=== PATIENT | female | born 1970 | race Caucasian/White ===

== ENCOUNTER → 2016-11-26 | Outpatient (CLI) | payer OTHER ==
[~2016-11-26] MED LIST: DCS100C; DOXY100C2 PO; FEXO1TAB49 PO; FLUO40CA PO; GUAI10SY4 PO; HYDR-34; HYDR-34 PO; HYDR25TA4 PO; HYOS0.1216 PO; IBP800T; INSN1U SQ; INSU100V31 SQ; LEVO500T78 PO; MTF500T PO; ONDA-42 SL; ONDA8TAB13 PO; ONDA8TAB6; OXYC-199 PO; OXYC-202 PO; PHEN37.555 PO; PRED1DRO OP; PREN1TAB39; VIGAMOX OP
[2016-11-26 02:48] LABS: BILIRUBIN,URINE NEGATIVE (NEGATIVE); KETONES,URINE NEGATIVE (NEGATIVE); LEUKOCYTE ESTERASE ,URINE 1+ (NEGATIVE); NITRITE,URINE NEGATIVE (NEGATIVE); PH,URINE 8 (5-9); PROTEIN,URINE 2+ (NEGATIVE); UROBILINOGEN,URINE 1 MG/DL (NORMAL)
== END ==
LOC: LAB 02:38
PROVIDERS: ATTEND Family Medicine
DX: R10.84 Generalized abdominal pain (principal); R35.0 Frequency of micturition
CPT/HCPCS: 81000; 87088

== ENCOUNTER → 2017-11-08 | Outpatient (CLI) | payer OTHER ==
--- NOTE | 2017-11-08 18:02 | Diagnostic Imaging Report ---
Digital mammogram bilateral screening with 3D tomosynthesis. This study was compared to the prior exams of 06/17/2015 and 07/18/2012. At this time, there are no current complaints. The current study was also evaluated with a Computer Aided Detection (CAD) system. FINDINGS: There are scattered fibroglandular densities in both breasts which could obscure a lesion. When compared to the prior study, there has been no significant change. There is no primary or secondary sign of malignancy noted. The 3D tomographic views also fail to show any sign of malignancy. IMPRESSION: 1. There is no evidence for malignancy. 2. The patient should have her annual screening mammogram on schedule in October of 2018. ACR BI-RADS Category 1: Negative. Result letter will be mailed to the patient. Note: At least 10% of breast cancer is not imaged by mammography. Dictated by: Dictated on workstation # [id number]
== END ==
LOC: RAD 10:40
PROVIDERS: ATTEND Obstetrics & Gynecology
DX: Z12.31 Encounter for screening mammogram for malignant neoplasm of breast (principal)
CPT/HCPCS: 77067

== ENCOUNTER 2019-06-05 02:18 | Emergency (ER) | payer OTHER ==
[~2019-06-05] VITALS: Ht 162 cm; Wt 101.9 kg
[~2019-06-05 02:18] MED LIST changes: -OXYC-202 PO; +OXYC1TAB12 PO
[2019-06-05] MEDS ORDERED: NS IV 1000 ML 1,000 ML IV SCH (02:28)
[2019-06-05] MEDS ORDERED: NS IV 1000 ML 1,000 ML IV ONE (02:28)
[2019-06-05] MEDS ORDERED: ONDANSETRON 4 MG/2 ML (SDV) Z0FRAN IVP ONE (02:30)
--- NOTE | 2019-06-05 02:36 | ED General ---
General Chief Complaint: Glucose Problems Stated Complaint: ELEVATED BLOOD SUGAR Source of Information: Patient Exam Limitations: No Limitations History of Present Illness Date Seen by Provider: Jun 05, 2019 Time Seen by Provider: 02:19 Initial Comments The patient presents with chief complaint of waking up this morning about an hour ago with nausea, thirst, urinary frequency for the past day and so she checked her blood sugar and it was 450. She is a type II diabetic on Victoza and metformin. Her blood sugar 120-150 fasting. She has not had an A1c past year. She follows with Dr. Maurice. She does not use insulin. She is not having any pain anywhere. She denies dysuria or discharge. She denies any rash or swelling she is cough or shortness of breath. She concerns of diverticulitis. She does not have a history of diabetic acidosis. She says last year similar episode to this occurred and she was found to have a bad infection. She doesn't have a historyshe was physically kids to sleep. He denies a history of hyperlipidemia or smoking. No previous coronary disease or significant familial history. Allergies and Home Medications Allergies Coded Allergies: prochlorperazine (Verified Allergy, Unknown, PT. HAS RECEIVED PHENERGAN IN PAST WITHOUT PROBLEMS, 12/24/07) Home Medications Insulin NPH Human Isophane 100 Unit/1 Ml Vial, 28 UNIT SQ DAILY, (Reported) Insulin NPH Human Isophane 100 Unit/1 Ml Vial, 12 UNIT SQ HS, (Reported) Insulin Regular, Human 100 Unit/1 Ml Vial, 12 UNIT SQ BID, (Reported) Oxycodone HCl/Acetaminophen 1 Each Tablet, 1-2 TAB PO Q4H PRN for PAIN Prescribed by: FREDDY BOO on 04/03/16 0749 Patient Home Medication List Home Medication List Reviewed: Yes Review of Systems Review of Systems Constitutional: No chills, No diaphoresis, No fever; malaise EENTM: No ear discharge Respiratory: No cough, No short of breath Cardiovascular: No chest pain, No edema Gastrointestinal: No abdominal pain, No constipation, No diarrhea, No nausea Genitourinary: No discharge, No dysuria Musculoskeletal: No back pain, No joint pain, No joint swelling Skin: No pruritus, No rash Psychiatric/Neurological: Denies Anxiety, Denies Depressed Hematologic/Lymphatic: Denies Blood Clots All Other Systems Reviewed Negative Unless Noted: Yes Past Inasobh-Akdjnt-Yxeznl Hx Patient Social History Alcohol Use: Denies Use Recreational Drug Use: No Smoking Status: Never a Smoker Recent Foreign Travel: No Contact w/Someone Who Travel: No Immunizations Up To Date Date of Pneumonia Vaccine: Mar 02, 2011 Date of Influenza Vaccine: Apr 01, 2014 Past Medical History Abdominal (two exploratory laparoscopys. ovarian cyst removals. ), Section, Gallbladder, Tonsillectomy Hypertension Reproductive Disorders: No Sexually Transmitted Disease: No Gastroesophageal Reflux Diabetes, Non-Insulin dep Depression Family Medical History No Pertinent Family Hx Physical Exam Vital Signs Vital Signs - First Documented 06/05/19 02:22 Temp 36.7 Pulse 105 Resp 20 B/P (MAP) 161/111 (128) Pulse Ox 98 O2 Delivery Room Air Capillary Refill : Height, Weight, BMI Height: 5'5.00" Weight: 230lbs. 0.0oz. [id number]; 38.27 BMI Method:Stated General Appearance: WD/WN, Anxious, Obese Eyes: Bilateral Eye Normal Inspection, Bilateral Eye PERRL, Bilateral Eye EOMI HEENT: PERRL/EOMI, Pharynx Normal; No Moist Mucous Membranes (oral mucosa mil dly dry) Neck: Full Range of Motion, Normal Inspection Respiratory: Lungs Clear, Normal Breath Sounds, No Accessory Muscle Use, No Respiratory Distress Cardiovascular: Regular Rate, Rhythm, No Edema, Normal Peripheral Pulses Gastrointestinal: Normal Bowel Sounds, No Organomegaly, Non Tender, Soft Extremity: Normal Capillary Refill, Normal Inspection, No Pedal Edema Neurologic/Psychiatric: Alert, Oriented x3, No Motor/Sensory Deficits Skin: Normal Color, Warm/Dry Progress/Results/Core Measures Suspected Sepsis SIRS Temperature: Pulse: Respiratory Rate: Laboratory Tests 06/05/19 02:35: White Blood Count 9.7 Blood Pressure / Mean: Laboratory Tests 06/05/19 02:35: Creatinine 0.82, Platelet Count 323, Total Bilirubin 0.9 Results/Orders Lab Results Laboratory Tests Test 06/05/19 02:26 06/05/19 02:30 06/05/19 02:35 06/05/19 03:52 Range/Units Glucometer 422 *H 407 *H 70-110 MG/DL Urine Color YELLOW Urine Clarity CLEAR Urine pH 7.0 5-9 Urine Specific [place] 1.010 L 1.016-1.022 Urine Protein NEGATIVE NEGATIVE Urine Glucose (UA) 3+ H NEGATIVE Urine Ketones NEGATIVE NEGATIVE Urine Nitrite NEGATIVE NEGATIVE Urine Bilirubin NEGATIVE NEGATIVE Urine Urobilinogen 0.2 < = 1.0 MG/DL Urine Leukocyte Esterase NEGATIVE NEGATIVE Urine RBC (Auto) NEGATIVE NEGATIVE Urine RBC NONE /HPF Urine WBC NONE /HPF Urine Squamous Epithelial Cells 2-5 /HPF Urine Crystals NONE /LPF Urine Bacteria TRACE /HPF Urine Casts NONE /LPF Urine Mucus NEGATIVE /LPF Urine Culture Indicated NO Urine Test NEGATIVE NEGATIVE White Blood Count 9.7 4.3-11.0 10^3/uL Red Blood Count 5.01 4.35-5.85 10^6/uL Hemoglobin 14.7 11.5-16.0 G/DL Hematocrit 44 35-52 % Mean Corpuscular Volume 87 80-99 FL Mean Corpuscular Hemoglobin 29 25-34 PG Mean Corpuscular Hemoglobin Concent 34 32-36 G/DL Red Cell Distribution Width 12.8 10.0-14.5 % Platelet Count 323 130-400 10^3/uL Mean Platelet Volume 10.0 7.4-10.4 FL Neutrophils (%) (Auto) 55 42-75 % Lymphocytes (%) (Auto) 34 12-44 % Monocytes (%) (Auto) 9 0-12 % Eosinophils (%) (Auto) 2 0-10 % Basophils (%) (Auto) 1 0-10 % Neutrophils # (Auto) 5.4 1.8-7.8 X 10^3 Lymphocytes # (Auto) 3.3 1.0-4.0 X 10^3 Monocytes # (Auto) 0.8 0.0-1.0 X 10^3 Eosinophils # (Auto) 0.2 0.0-0.3 10^3/uL Basophils # (Auto) 0.1 0.0-0.1 10^3/uL Sodium Level 136 135-145 MMOL/L Potassium Level 3.6 3.6-5.0 MMOL/L Chloride Level 100 98-107 MMOL/L Carbon Dioxide Level 22 21-32 MMOL/L Anion Gap 14 5-14 MMOL/L Blood Urea Nitrogen 14 7-18 MG/DL Creatinine 0.82 0.60-1.30 MG/DL Estimat Glomerular Filtration Rate > 60 BUN/Creatinine Ratio 17 Glucose Level 439 *H 70-105 MG/DL Calcium Level 9.8 8.5-10.1 MG/DL Corrected Calcium 8.5-10.1 MG/DL Total Bilirubin 0.9 0.1-1.0 MG/DL Aspartate Amino Transf (AST/SGOT) 11 5-34 U/L Alanine Aminotransferase (ALT/SGPT) 23 0-55 U/L Alkaline Phosphatase 70 40-136 U/L Troponin I < 0.028 <0.028 NG/ML C-Reactive Protein High Sensitivity 1.18 H 0.00-0.50 MG/DL Total Protein 7.5 6.4-8.2 GM/DL Albumin 4.6 H 3.2-4.5 GM/DL Lipase 34 8-78 U/L Test 06/05/19 04:36 06/05/19 05:28 06/05/19 06:11 Range/Units Glucometer 386 H 345 H 254 H 70-110 MG/DL My Orders Orders - CHERI BURGESS Ondansetron Injection (Zofran Injectio (06/05/19 02:30) Ed Iv/Invasive Line Start (06/05/19 02:28) Ns Iv 1000 Ml (Sodium Chloride 0.9%) (06/05/19 02:28) Ns Iv 1000 Ml (Sodium Chloride 0.9%) (06/05/19 02:28) Accucheck Stat ONCE (06/05/19 02:28) Lipase (06/05/19 02:28) Cbc With Automated Diff (06/05/19 02:28) Comprehensive Metabolic Panel (06/05/19 02:28) Hs C Reactive Protein (06/05/19 02:28) Chest 1 View, Ap/Pa Only (06/05/19 02:28) Ua Culture If Indicated (06/05/19 02:28) Hcg,Qualitative Urine (06/05/19 02:28) Aspirin Chewable Tablet (Baby Aspirin Ch (06/05/19 02:45) Ekg Tracing (06/05/19 02:36) Troponin I (06/05/19 02:36) Continuous Ekg Monitoring (06/05/19 02:36) Insulin Aspart (Novolog) (Novolog (Charg (06/05/19 03:30) Hemoglobin A1c (06/05/19 03:30) Accucheck Stat ONCE (06/05/19 04:00) Insulin Aspart (Novolog) (Novolog (Charg (06/05/19 04:00) Insulin Determir (Per Unit) (Levemir (Pe (06/05/19 04:00) Accucheck Stat ONCE (06/05/19 04:35) Accucheck Stat ONCE (06/05/19 05:05) Accucheck Stat ONCE (06/05/19 06:05) Medications Given in ED Current Medications Medications Dose Ordered Sig/Pineda Route Start Time Stop Time Status Last Admin Dose Admin Aspirin 324 mg ONCE ONCE PO 06/05/19 02:45 06/05/19 02:46 DC 06/05/19 02:41 324 MG Insulin Aspart 10 unit ONCE ONCE SC 06/05/19 03:30 06/05/19 03:31 DC 06/05/19 03:27 10 UNIT Insulin Aspart 20 unit ONCE ONCE SC 06/05/19 04:00 06/05/19 04:01 DC 06/05/19 04:06 20 UNIT Insulin Detemir 20 unit ONCE ONCE SQ 06/05/19 04:00 06/05/19 04:01 DC 06/05/19 04:06 20 UNIT Ondansetron HCl 8 mg ONCE ONCE IVP 06/05/19 02:30 06/05/19 02:35 DC 06/05/19 02:40 8 MG Sodium Chloride 1,000 ml @ 0 mls/hr Q0M ONCE IV 06/05/19 02:28 06/05/19 02:35 DC 06/05/19 02:39 0 MLS/HR Vital Signs/I&O 06/05/19 02:22 Temp 36.7 Pulse 105 Resp 20 B/P (MAP) 161/111 (128) Pulse Ox 98 O2 Delivery Room Air Capillary Refill : Progress Note #1: Time: 02:40 Progress Note Patient presents with hyperglycemia associated with nausea and urinary frequency. We will look for infection as a source of her hyperglycemia but we'll also provide cover against atypical angina with some aspirin and obtain EKG and troponin. Her symptoms started at 1:00 approximately 1 hour 40 minutes prior. She has not had any chest pain, jaw, neck, shoulder or arm involvement. Progress Note #2: Time: 03:31 Progress Note No evidence of anion gap. She's not having any pain or nausea presently. We've given her the better part of 2 L and we'll give her 10 units of NovoLog and recheck the blood sugar in about 25 minutes. Since she's not had an hemoglobin A1c in the past year we will obtain one today for her primary care office. Progress Note #3: Time: 06:22 Progress Note We have trended the patient's blood sugar down to 254. She is feeling okay. We have recommended she follow up with primary care. Return precautions were given. ECG Initial ECG Impression Date: Jun 05, 2019 Initial ECG Impression Time: 02:44 Initial ECG Rate: 97 Initial ECG Rhythm: Normal Sinus Initial ECG Intervals: Normal Initial ECG Impression: Normal Initial ECG Comparisson: Unchanged Comment No ST elevation or depression. Normal sinus rhythm. Diagnostic Imaging Diagonstic Imaging: Xray Plain Films/CT/US/NM/MRI: chest (1v) Comments No acute cardiopulmonary processes noted on one view chest x-ray. Radiology over read pending. Reviewed: Reviewed by Me Departure Impression Primary Impression: Hyperglycemia due to type 2 diabetes mellitus Qualified Codes: E11.65 - Type 2 diabetes mellitus with hyperglycemia Disposition: 01 HOME, SELF-CARE Condition: Improved Departure-Patient Inst. Decision time for Depature: 06:22 Referrals: FRANK MAURICE MD (PCP/Family) Primary Care Physician Patient Instructions: Diabetes Type 2 (DC) Add. Discharge Instructions: Plan to follow up with primary care. If you feel cold clammy sweaty, irritable or otherwise just off then please check your sugar immediately. Keep something to eat with you on hand at all times today. All discharge instructions reviewed with patient and/or family. Voiced understanding. Work/School Note: Work Release Form Date Seen in the Emergency Department: Jun 05, 2019 Return to Work: Jun 06, 2019 Restrictions: No Restrictions CHERI BURGESS Jun 05, 2019 02:36 POS
[2019-06-05 02:44] LABS: BASOPHILS # (AUTO) 0.1 10^3/uL (0.0-0.1); BASOPHILS % (AUTO) 1 % (0-10); EOSINOPHILS # (AUTO) 0.2 10^3/uL (0.0-0.3); EOSINOPHILS % (AUTO) 2 % (0-10); HEMATOCRIT 44 % (35-52); HEMOGLOBIN 14.7 G/DL (11.5-16.0); LYMPHOCYTES # (AUTO) 3.3 X 10^3 (1.0-4.0); LYMPHOCYTES % (AUTO) 34 % (12-44); MEAN CORPUSCULAR HEMOGLOBIN 29 PG (25-34); MEAN CORPUSCULAR HGB CONC 34 G/DL (32-36); MEAN CORPUSCULAR VOLUME 87 FL (80-99); MONOCYTES # (AUTO) 0.8 X 10^3 (0.0-1.0); MONOCYTES % (AUTO) 9 % (0-12); NEUTROPHILS # (AUTO) 5.4 X 10^3 (1.8-7.8); NEUTROPHILS % (AUTO) 55 % (42-75); PLATELET COUNT 323 10^3/uL (130-400); RED CELL DISTRIBUTION WIDTH 12.8 % (10.0-14.5); WHITE BLOOD COUNT 9.7 10^3/uL (4.3-11.0)
[2019-06-05] MEDS ORDERED: ASPIRIN 81 MG CHEW (CHILDREN'S ASA) PO ONE (02:45)
[2019-06-05 02:47] LABS: BACTERIA,URINE TRACE /HPF; BILIRUBIN,URINE NEGATIVE (NEGATIVE); CLARITY,URINE CLEAR; COLOR,URINE YELLOW; GLUCOSE, URINE (UA) 3+ (NEGATIVE); KETONES,URINE NEGATIVE (NEGATIVE); LEUKOCYTE ESTERASE ,URINE NEGATIVE (NEGATIVE); NITRITE,URINE NEGATIVE (NEGATIVE); PROTEIN,URINE NEGATIVE (NEGATIVE)
[2019-06-05 03:02] LABS: ALANINE AMINOTRANSFERASE 23 U/L (0-55); ALBUMIN 4.6 GM/DL (3.2-4.5); ALKALINE PHOSPHATASE 70 U/L (40-136); BILIRUBIN,TOTAL 0.9 MG/DL (0.1-1.0); BUN/CREATININE RATIO 17; CALCIUM 9.8 MG/DL (8.5-10.1); CARBON DIOXIDE 22 MMOL/L (21-32); CHLORIDE 100 MMOL/L (98-107); CREATININE SERUM 0.82 MG/DL (0.60-1.30); GFR ESTIMATED > 60; LIPASE 34 U/L (8-78); POTASSIUM 3.6 MMOL/L (3.6-5.0); SODIUM 136 MMOL/L (135-145); TOTAL PROTEIN 7.5 GM/DL (6.4-8.2)
[2019-06-05 03:10] LABS: GLUCOSE 439 MG/DL (70-105)
[2019-06-05] MEDS ORDERED: inSUlin ASPART (NovoLOG) 1 UNIT/0.01 ML (CHARGE PER UNIT) SC ONE ×2 (03:30→04:00)
--- NOTE | 2019-06-05 05:54 | Diagnostic Imaging Report ---
Clinical indication: Patient with elevated blood sugar. Exam: Portable chest x-ray upright view. Comparisons: Chest x-ray dated 11/24/2015. Findings: Lungs/pleura: Lungs are clear. There is no pneumothorax. There is no pleural effusion. Mediastinum: Unremarkable. Pulmonary vasculature: Unremarkable. Heart: Unremarkable. Bones/extrathoracic soft tissue: Unremarkable. Impression: There is no radiographic evidence of acute cardiopulmonary process. Dictated by: Dictated on workstation # [id number]
[2019-06-05 06:32] VITALS: BP 151/89
== END 2019-06-05 06:38 | disposition home or self-care (01) ==
LOC: EDUNIT# 02:18 → ER 02:19
DX: E11.65 Type 2 diabetes mellitus with hyperglycemia (principal); I10 Essential (primary) hypertension; K21.9 Gastro-esophageal reflux disease without esophagitis; F32.9 Major depressive disorder, single episode, unspecified; Z90.89 Acquired absence of other organs; Z88.8 Allergy status to other drugs, medicaments and biological substances; Z79.4 Long term (current) use of insulin
CPT/HCPCS: 36415; 71045; 80053; 81000; 82962; 83036; 83690; 84484; 84703; 85025; 86141; 93005; 96361; 96372; 96374

== ENCOUNTER → 2019-07-24 | Outpatient (CLI) | payer OTHER ==
--- NOTE | 2019-07-25 07:59 | Diagnostic Imaging Report ---
Digital mammogram. INDICATION: Bilateral screening This study was compared to the prior exams of 11/08/2017 and 06/17/2015. At this time there are no current complaints. The current study was also evaluated with a Computer Aided Detection (CAD) system. FINDINGS: There are scattered fibroglandular densities in both breasts which could obscure a lesion. Overall, there does not appear to have been any significant change when compared to the prior exam. No primary or secondary sign of malignancy is noted. IMPRESSION: There is no radiographic evidence for malignancy. ACR BI-RADS Category 1: Negative. Result letter will be mailed to the patient. Note: At least 10% of breast cancer is not imaged by mammography. Dictated by: Dictated on workstation # [id number]
== END ==
LOC: RAD 15:40
PROVIDERS: ATTEND Obstetrics & Gynecology
DX: Z12.31 Encounter for screening mammogram for malignant neoplasm of breast (principal)
CPT/HCPCS: 77067

== ENCOUNTER → 2020-01-13 | Outpatient (CLI) | payer OTHER ==
[2020-01-13 09:01] LABS: BASOPHILS # (AUTO) 0.1 10^3/uL (0.0-0.1); BASOPHILS % (AUTO) 1 % (0-10); EOSINOPHILS # (AUTO) 0.2 10^3/uL (0.0-0.3); EOSINOPHILS % (AUTO) 3 % (0-10); HEMATOCRIT 40 % (35-52); HEMOGLOBIN 13.5 G/DL (11.5-16.0); LYMPHOCYTES # (AUTO) 2.3 X 10^3 (1.0-4.0); LYMPHOCYTES % (AUTO) 31 % (12-44); MEAN CORPUSCULAR HEMOGLOBIN 29 PG (25-34); MEAN CORPUSCULAR HGB CONC 34 G/DL (32-36); MEAN CORPUSCULAR VOLUME 87 FL (80-99); MEAN PLATELET VOLUME 9.5 FL (7.4-10.4); MONOCYTES # (AUTO) 0.5 X 10^3 (0.0-1.0); MONOCYTES % (AUTO) 7 % (0-12); NEUTROPHILS # (AUTO) 4.4 X 10^3 (1.8-7.8); NEUTROPHILS % (AUTO) 59 % (42-75); PLATELET COUNT 293 10^3/uL (130-400); RED CELL DISTRIBUTION WIDTH 13.6 % (10.0-14.5); WHITE BLOOD COUNT 7.4 10^3/uL (4.3-11.0)
[2020-01-13 09:15] LABS: ALBUMIN 4.4 GM/DL (3.2-4.5); CHLORIDE 103 MMOL/L (98-107); SODIUM 135 MMOL/L (135-145)
[2020-01-13 09:16] LABS: CALCIUM 9.1 MG/DL (8.5-10.1)
[2020-01-13 09:17] LABS: TRIGLYCERIDES 233 MG/DL (<150); VLDL CHOLESTEROL 47 MG/DL (5-40)
[2020-01-13 09:18] LABS: GLUCOSE 290 MG/DL (70-105); TOTAL PROTEIN 7.4 GM/DL (6.4-8.2)
[2020-01-13 09:19] LABS: BILIRUBIN,TOTAL 1.2 MG/DL (0.1-1.0); CARBON DIOXIDE 21 MMOL/L (21-32)
[2020-01-13 09:21] LABS: ALKALINE PHOSPHATASE 60 U/L (40-136); CREATININE SERUM 0.75 MG/DL (0.60-1.30); GFR ESTIMATED > 60
[2020-01-13 09:22] LABS: CHOLESTEROL 191 MG/DL (< 200)
[2020-01-13 09:23] LABS: BUN/CREATININE RATIO 16
[2020-01-13 09:24] LABS: ALANINE AMINOTRANSFERASE 30 U/L (0-55); HDL CHOLESTEROL 42 MG/DL (40-60)
== END ==
LOC: LAB 08:33
PROVIDERS: ATTEND Family Medicine
DX: I10 Essential (primary) hypertension (principal); E11.9 Type 2 diabetes mellitus without complications
CPT/HCPCS: 36415; 80053; 80061; 82043; 83036; 84443; 85025

== ENCOUNTER 2020-06-16 05:40 | Outpatient (RCR) | payer OTHER ==
[~2020-06-16] VITALS: Ht 162 cm; Wt 103.6 kg
[~2020-06-16 05:40] MED LIST changes: +CHOL200074 PO; +FLUO20CA42 PO; +LIRA0.6P SQ; +LORA10TA76 PO; +LOSA50TA63 PO; +METF-397 PO; +MULT-1136 PO; +ZINC50TA11 PO
== END 2020-06-16 13:06 | disposition home or self-care (01) ==
LOC: PREOP 05:40
PROVIDERS: ATTEND Surgery
DX: Z01.812 Encounter for preprocedural laboratory examination (principal); K21.9 Gastro-esophageal reflux disease without esophagitis; Z20.828 Contact with and (suspected) exposure to other viral communicable diseases
CPT/HCPCS: 87635

== ENCOUNTER 2020-06-18 11:12 | Day surgery (SDC) | payer OTHER ==
--- NOTE | 2020-06-15 07:49 | HISTORY AND PHYSICAL ---
DATE OF SERVICE: DATE OF ADMISSION: 06/18/2020. HISTORY OF PRESENT ILLNESS: The patient is a 49-year-old female with a longstanding history of gastroesophageal reflux disease. She states that this initially occurred approximately 16 years ago and she did undergo an EGD in 2003 and was found to have a small hiatal hernia. She states that over time this has worsened and this has been associated in the last month with epigastric burning sensation as well as crampy pain, which is significant. She does not report any nausea nor vomiting as well as no hematemesis, no coffee-ground emesis. She states for the most part, her bowel movements have been regular. She does not report any antoine episodes of nausea or vomiting following meals. PAST MEDICAL HISTORY: Diabetes, hypertension, gastroesophageal reflux disease. PAST SURGICAL HISTORY: section x3, tonsillectomy, ovarian cystectomy, D and C. ALLERGIES: COMPAZINE. MEDICATIONS: Victoza, losartan, Prozac. SOCIAL HISTORY: Negative smoke, negative alcohol. FAMILY HISTORY: Father, myocardial infarction, age 48. Vital signs are stable, afebrile. REVIEW OF SYSTEMS: A well-nourished female in no acute distress. She is not experiencing any shortness of breath or difficulty in breathing. No cough or sputum production. No chest pain, palpitations, diaphoresis. Intermittent episodes of epigastric burning sensation as well as crampy pain. No hematemesis, no coffee-ground emesis. No red blood per rectum, no dark tarry stools. No fever or chills. No recent inadvertent weight loss. All other review of systems negative. PHYSICAL EXAMINATION: CHEST: Clear. Good breath sounds bilaterally. HEART: Regular, no murmurs. EXTREMITIES: No lower extremity edema, negative Homans sign. HEENT: No scleral icterus. NECK: No cervical lymphadenopathy. ABDOMEN: Soft, nondistended. There is pain in the epigastric region upon deep palpation. No hernias. SKIN: Warm, dry. ASSESSMENT AND PLAN: A 49-year-old female with a worsening gastroesophageal reflux disease. While on PPI acid specimen transporter, we will proceed with an EGD as well as biopsies as appropriate. Job ID: [id number] DocumentID: [id number] Dictated Date: 06/11/2020 11:34:13 Research Worker Kitchen Date: 06/11/2020 13:17:17 Dictated By: LILIYA DUONG MD
[~2020-06-18] VITALS: Ht 162 cm; Wt 104.0 kg
[2020-06-18 11:15] VITALS: BP 138/94
[2020-06-18] MEDS ORDERED: LACTATED RINGERS 1,000 ML IV ONE (11:29)
[2020-06-18] MEDS ORDERED: LIDOCAINE JELLY 2% 6 ML SYRINGE MM PRN (11:30)
[2020-06-18] MEDS ORDERED: HURRICAINE EXT TUBE (BENZOCAINE) XX PRN (11:30)
[2020-06-18] MEDS ORDERED: LACTATED RINGERS 1,000 ML IV PRN (11:30)
--- NOTE | 2020-06-18 11:38 | Progress Note-Pre Operative ---
Pre-Operative Progress Note H&P Reviewed The H&P was reviewed, patient examined and no changes noted. Date Seen by Provider: Jun 18, 2020 Time Seen by Provider: 11:00 Date H&P Reviewed: Jun 18, 2020 Time H&P Reviewed: 11:00 Pre-Operative Diagnosis: LILIYA TADEO MD Jun 18, 2020 11:38
[2020-06-18] MEDS ORDERED: PANT40TA2 PO (11:39)
--- NOTE | 2020-06-18 11:40 | Discharge Inst-Surgical ---
D/C Lap Instructions-KIDO New, Converted, or Re-Newed RX: RX on Chart Follow Up Activity as tolerated High Fiber Diet 25g or more per day Avoid Alcohol, Caffeine, Spicy [place] and Acid foods. Drink 64 fluid oz or more of fluids per day. Symptoms to Report: Fever over 101 degree F, Nausea/Vomiting If any problems/questions: Contact your physician or go to Emergency Room LILIYA DUONG MD Jun 18, 2020 11:40
[2020-06-18] MEDS ORDERED: ONDANSETRON 4 MG/2 ML (SDV) Z0FRAN IVP PRN (11:45)
[2020-06-18] MEDS ORDERED: morphine INJ 10 MG/ML 1ML (SYR OR VIAL) IVP PRN ×2 (11:45)
[2020-06-18] MEDS ORDERED: ACETAMINOPHEN 325 MG TABLET PO PRN (11:45)
[2020-06-18] MEDS ORDERED: HYDROcodone/APAP 5 MG/325 MG (LORTAB) TAB PO PRN (11:45)
[2020-06-18] MEDS ORDERED: LIDOCAINE JELLY 2% 6 ML SYRINGE ONE (12:05)
[2020-06-18] MEDS ORDERED: proPOfol 200 MG/20 ML (DIPRIVAN) VIAL IV ONE (12:08)
[2020-06-18] MEDS ORDERED: MIDAZOLAM 2 MG/2 ML (VERSED) VIAL ONE (12:08)
[2020-06-18] MEDS ORDERED: ONDANSETRON 4 MG/2 ML (SDV) Z0FRAN ONE (12:11)
[2020-06-18 12:35] VITALS: BP 144/71
--- NOTE | 2020-06-18 12:40 | Progress Note-Post Operative ---
Post-Operative Progess Note Surgeon (s)/Clinical Aide (s) Surgeon LILIYA DUONG MD Clinical Aide: none Pre-Operative Diagnosis GERD Post-Operative Diagnosis reflux esophagitis(stage 2), small type 1 HH(2cm), moderate gastritis. Procedure & Operative Findings Date of Procedure 06/18/20 Procedure Performed/Findings EGD with bx. Anesthesia Type mac Estimated Blood Loss Estimated blood loss (mL): minimal Specimens/Packing Specimens Removed ge jxn, antrum LILIYA DUONG MD Jun 18, 2020 12:40
[2020-06-18 12:45] VITALS: BP 144/71
--- NOTE | 2020-06-18 12:54 | Anesthesia-General Post-Op ---
MAC Patient Condition Mental Status/LOC: Same as Preop Cardiovascular: Satisfactory Nausea/Vomiting: Absent Respiratory: Satisfactory Pain: Controlled Complications: Absent Post Op Complications Complications None Follow Up Care/Instructions Patient Instructions None needed. Anesthesiology Discharge Order Discharge Order Patient is doing well, no complaints, stable vital signs, no apparent adverse anesthesia problems. WENDI PEREZ DO Jun 18, 2020 12:54
[2020-06-18 13:15] VITALS: BP 144/70
--- NOTE | 2020-06-18 18:58 | OPERATIVE REPORT ---
DATE OF SERVICE: 06/18/2020 ATTENDING PRIMARY CARE PHYSICIAN: Cecilia Schwartz MD PREOPERATIVE DIAGNOSIS: Gastroesophageal reflux disease. POSTOPERATIVE DIAGNOSES: Reflux esophagitis stage II, small type 1 sliding hiatal hernia 2 cm in size, moderate gastritis. PROCEDURE: EGD with biopsy. SURGEON: Liliya Duong MD. ANESTHESIA: Monitored anesthesia care. ESTIMATED BLOOD LOSS: Minimal. FINDINGS: Same as postoperative diagnoses. DISPOSITION: The patient tolerated the procedure well. INDICATIONS: The patient is a 49-year-old female with longstanding history of gastroesophageal reflux disease. She states that this initially occurred approximately 16 years ago and did undergo an EGD in 2003 and was found to have a small hiatal hernia. She states that over time, her symptoms have worsened. In the last month, she has epigastric burning sensation as well as crampy pain, which is significant. She does not report any nausea, no vomiting as well as no hematemesis, no coffee ground emesis. She also does not report any antoine episodes of nausea nor vomiting as well as no abdominal distention following meals. DESCRIPTION OF PROCEDURE: The patient was brought to the endoscopy suite, laid in the left lateral decubitus position. After adequate IV pain and sedative medications and monitored anesthesia care, the mouthpiece was applied. The endoscope was placed in the mouth, visualizing the pharynx and hypopharyngeal region. Vocal cords, epiglottis and vallecula identified and appeared to be normal. The endoscope was gently intubated in the esophageal opening and esophagus insufflated. The endoscope was then advanced through the first, second and third portion of esophagus at the level of the GE junction, a reflux esophagitis stage II identified. The GE junction was slightly intrathoracic consistent with a type 1 sliding hiatal hernia. A biopsy was taken with forceps with visualization of good hemostasis. The endoscope was advanced into the stomach and endoscope retroflexed, visualizing a small hiatal hernia, type 1 sliding hiatal hernia approximately 2 cm in size. There was a moderate gastritis. No formal ulcerations, polyps, or any neoplasms. A biopsy was taken of the antrum to rule out H. pylori with visualization of good hemostasis. The endoscope was then advanced to the pylorus and the first and second portion of the duodenum, which appeared normal with no distal obstructions. The endoscope was then slowly withdrawn while taking a second look and suctioning of residual air with no additional findings. The patient tolerated the procedure well. We will recommend the necessary lifestyle and diet accommodation including small and more frequent meals, avoidance of eating at night as well as head elevation while lying supine. We will also recommend moderation of caffeinated beverages, spicy, greasy and acidic foods. We will also start her on Protonix 40 mg daily. Job ID: [id number] DocumentID: [id number] Dictated Date: 06/18/2020 12:34:16 Bench Manager Date: 06/18/2020 18:58:16 Dictated By: ILLIYA DUONG MD
== END 2020-06-18 13:15 | disposition home or self-care (01) ==
LOC: ENDO 11:12
PROVIDERS: ATTEND Surgery
DX: K21.00 Gastro-esophageal reflux disease with esophagitis, without bleeding (principal); K29.50 Unspecified chronic gastritis without bleeding; K44.9 Diaphragmatic hernia without obstruction or gangrene; I10 Essential (primary) hypertension; F32.9 Major depressive disorder, single episode, unspecified; E11.9 Type 2 diabetes mellitus without complications; Z79.84 Long term (current) use of oral hypoglycemic drugs; Z79.899 Other long term (current) drug therapy; Z88.8 Allergy status to other drugs, medicaments and biological substances
CPT/HCPCS: 84703; 88305

== ENCOUNTER → 2020-08-02 | Outpatient (CLI) | payer OTHER ==
[~2020-08-02] MED LIST changes: +PANT40TA2 PO
== END ==
LOC: LAB 07:23
PROVIDERS: ATTEND Family Medicine
DX: Z01.89 Encounter for other specified special examinations (principal)

== ENCOUNTER → 2020-08-02 | Outpatient (CLI) | payer OTHER ==
[~2020-08-02] VITALS: Ht 162 cm; Wt 103.0 kg
[~2020-08-02] MED LIST changes: +BAMLANIVIMAB (NON FORM) 700 MG in NS (IVPB) 250 ML IV ONE; +EPINEPHrine INJECTION 1 MG/ML AMP IM PRN; +diphenhydrAMINE 50 MG/ML INJ (BENADRYL) IV PRN; +meTOprolol TARTRATE 25 MG (LOPRESSOR) TABLET PO ONE
[2020-08-02 13:07] VITALS: BP 182/107
[2020-08-02 14:50] VITALS: BP 161/104
== END ==
LOC: INFUSION 13:08
PROVIDERS: ATTEND Emergency Medicine
DX: U07.1 COVID-19 (principal); E11.65 Type 2 diabetes mellitus with hyperglycemia

== ENCOUNTER → 2020-08-23 | Outpatient (CLI) | payer OTHER ==
[~2020-08-23] MED LIST changes: -BAMLANIVIMAB (NON FORM) 700 MG in NS (IVPB) 250 ML IV ONE; -EPINEPHrine INJECTION 1 MG/ML AMP IM PRN; -diphenhydrAMINE 50 MG/ML INJ (BENADRYL) IV PRN; -meTOprolol TARTRATE 25 MG (LOPRESSOR) TABLET PO ONE
[2020-08-23 06:34] LABS: BASOPHILS # (AUTO) 0.1 10^3/uL (0.0-0.1); BASOPHILS % (AUTO) 1 % (0-10); EOSINOPHILS # (AUTO) 0.3 10^3/uL (0.0-0.3); EOSINOPHILS % (AUTO) 3 % (0-10); HEMATOCRIT 41 % (35-52); HEMOGLOBIN 13.8 g/dL (11.5-16.0); LYMPHOCYTES # (AUTO) 3.2 10^3/uL (1.0-4.0); LYMPHOCYTES % (AUTO) 31 % (12-44); MEAN CORPUSCULAR HEMOGLOBIN 30 pg (25-34); MEAN CORPUSCULAR HGB CONC 34 g/dL (32-36); MEAN CORPUSCULAR VOLUME 89 fL (80-99); MEAN PLATELET VOLUME 9.9 fL (9.0-12.2); MONOCYTES # (AUTO) 0.6 10^3/uL (0.0-1.0); MONOCYTES % (AUTO) 6 % (0-12); NEUTROPHILS % (AUTO) 58 % (42-75); PLATELET COUNT 309 10^3/uL (130-400); WHITE BLOOD COUNT 10.3 10^3/uL (4.3-11.0)
[2020-08-23 06:44] LABS: CHLORIDE 105 MMOL/L (98-107); POTASSIUM 4.3 MMOL/L (3.6-5.0); SODIUM 138 MMOL/L (135-145)
[2020-08-23 06:45] LABS: ALBUMIN 4.3 GM/DL (3.2-4.5)
[2020-08-23 06:47] LABS: GLUCOSE 317 MG/DL (70-105); TOTAL PROTEIN 7.6 GM/DL (6.4-8.2); TRIGLYCERIDES 321 MG/DL (<150); VLDL CHOLESTEROL 64 MG/DL (5-40)
[2020-08-23 06:48] LABS: CARBON DIOXIDE 20 MMOL/L (21-32)
[2020-08-23 06:49] LABS: BILIRUBIN,TOTAL 0.6 MG/DL (0.1-1.0)
[2020-08-23 06:51] LABS: ALKALINE PHOSPHATASE 61 U/L (40-136); CREATININE SERUM 0.79 MG/DL (0.60-1.30); GFR ESTIMATED > 60
[2020-08-23 06:52] LABS: BUN/CREATININE RATIO 23; CHOLESTEROL 165 MG/DL (< 200)
[2020-08-23 06:53] LABS: HDL CHOLESTEROL 37 MG/DL (40-60)
[2020-08-23 06:54] LABS: ALANINE AMINOTRANSFERASE 41 U/L (0-55)
== END ==
LOC: LAB 06:06
PROVIDERS: ATTEND Family Medicine
DX: Z00.00 Encounter for general adult medical examination without abnormal findings (principal); Z13.220 Encounter for screening for lipoid disorders; E11.65 Type 2 diabetes mellitus with hyperglycemia
CPT/HCPCS: 36415; 80053; 80061; 83036; 84443; 85025

== ENCOUNTER → 2022-07-04 | Outpatient (CLI) | payer OTHER ==
[2022-07-04 08:25] LABS: ALBUMIN 4.3 GM/DL (3.2-4.5); POTASSIUM 4.2 MMOL/L (3.6-5.0)
[2022-07-04 08:26] LABS: CALCIUM 9.4 MG/DL (8.5-10.1)
[2022-07-04 08:27] LABS: TOTAL PROTEIN 7.3 GM/DL (6.4-8.2)
[2022-07-04 08:29] LABS: BILIRUBIN,TOTAL 1.1 MG/DL (0.1-1.0)
[2022-07-04 08:31] LABS: CREATININE SERUM 0.77 MG/DL (0.60-1.30)
== END ==
LOC: LAB 07:47
PROVIDERS: ATTEND Nurse Practitioner
DX: Z13.9 Encounter for screening, unspecified (principal); E11.9 Type 2 diabetes mellitus without complications
CPT/HCPCS: 36415; 80053; 80061; 83036; 83525; 84443